=== PATIENT | female | born 1950 | race African-American/Black ===

== ENCOUNTER 2024-04-22 15:10 | Emergency (ER) | payer OTHER ==
[2024-04-22 15:49] VITALS: TEMP 98.1; BMI 40.8
[2024-04-22] MEDS ORDERED: ALBUTEROL SO4 2.5/IPRATROPIUM 0.5 INH SOL 3 ML VIAL.NEB. NEB ONE (17:24)
[2024-04-22] MEDS: ALBUTEROL SO4 2.5/IPRATROPIUM 0.5 INH SOL 3 ML VIAL.NEB. NEB ONE (17:51)
[2024-04-22 18:35] LABS: BASO % 0.4 % (0-2.0); EOS % 1.1 % (0-4.5); HEMATOCRIT 40.4 % (32.4-45.2); LYMPH % 15.9 % (8-40); MCHC 32.1 g/dl (32.0-36.0); MEAN CELL VOLUME 80.8 fl (80-96); MEAN PLT VOLUME 8.6 fl (7.5-11.1); MONO % 10.4 % (3.8-10.2); NEUT % 72.2 % (42.8-82.8); PLATELET COUNT 207 10^3/uL (134-434); RDW 16.4 % (11.6-15.6); WHITE BLOOD COUNT 7.8 K/mm3 (4.0-10.0)
[2024-04-22 18:37] LABS: VENOUS BASE EXCESS 1.1 mmol/L (-2-2); VENOUS O2 SATURATION 57.8 % (70-80); VENOUS PCO2 46.3 mmHg (38-52); VENOUS PH 7.379 (7.310-7.410)
[2024-04-22 18:53] LABS: POTASSIUM 4.4 mmol/L (3.5-5.1)
[2024-04-22 18:56] LABS: ALBUMIN 3.5 g/dl (3.4-5.0); BLOOD UREA NITROGEN 23.9 mg/dL (7-18); CALCIUM 8.3 mg/dL (8.5-10.1)
[2024-04-22 19:01] LABS: BILIRUBIN,TOTAL 0.3 mg/dL (0.2-1); TOT PROT 6.2 g/dl (6.4-8.2)
[2024-04-22 19:04] LABS: N-TERMINAL BNP 104.7 pg/ml (5-125)
[2024-04-22 21:34] VITALS: BP 162/84; PULSE 59; RESP 20
== END 2024-04-22 21:37 | disposition home or self-care (01) ==
LOC: JER 15:10
PROC: 3E0F7GC Introduction of Other Therapeutic Substance into Respiratory Tract, Via Natural or Artificial Opening (ICD-10-PCS; principal; 2024-04-22)
DX: R06.02 Shortness of breath (principal); M79.89 Other specified soft tissue disorders; R05.9 Cough, unspecified; R07.89 Other chest pain; Z20.822 Contact with and (suspected) exposure to COVID-19
CPT/HCPCS: 0241U-QW; 36415; 71045-TC-FY; 71046-TC-FY; 80053; 82803; 82962; 83880; 84484; 85025; 93005; 93010; 99285-25